=== PATIENT | female | born 1980 | race Two or more races ===

== ENCOUNTER 2024-04-27 14:10 | Outpatient (CLI) | payer OTHER | END 2024-04-27 14:19 | disposition home or self-care (01) | LOC: RAD 14:10 | DX: Z01.89 Encounter for other specified special examinations (principal) ==

== ENCOUNTER 2024-06-04 13:50 | Outpatient (CLI) | payer OTHER | END 2024-06-04 14:04 | disposition home or self-care (01) | LOC: MRI 13:50 | DX: M54.16 Radiculopathy, lumbar region (principal) | CPT/HCPCS: 72148 ==